=== PATIENT | male | born 1980 | race Caucasian/White ===

== ENCOUNTER 2021-08-02 12:15 | Emergency (ER) | payer OTHER ==
[~2021-08-02] VITALS: Ht 170.2 cm; Wt 70.3 kg
[2021-08-03] MEDS ORDERED: INTESTINEX680 M1 PO (17:09)
[2021-08-03] MEDS ORDERED: CLEOCIN HCL300 MG PO (17:09)
== END 2021-08-02 15:40 | disposition home or self-care (01) ==
LOC: ER 12:15
DX: L03.811 Cellulitis of head [any part, except face] (principal)

== ENCOUNTER 2021-08-03 12:45 | Emergency (ER) | payer OTHER ==
[~2021-08-03] VITALS: Ht 170.2 cm; Wt 70.3 kg
[2021-08-03] MEDS ORDERED: INTESTINEX680 M1 PO (17:09)
[2021-08-03] MEDS ORDERED: CLEOCIN HCL300 MG PO (17:09)
== END 2021-08-03 18:03 ==
LOC: ER 12:45
DX: L02.831 Carbuncle of head [any part, except face] (principal); L03.811 Cellulitis of head [any part, except face]